=== PATIENT | female | born 1975 | race Hispanic/Latino ===

== ENCOUNTER → 2018-10-28 | Outpatient (CLI) | payer BC | END | disposition home or self-care (01) | LOC: RAH 13:35 | PROVIDERS: ATTEND Nurse Practitioner Family | DX: Z12.31 Encounter for screening mammogram for malignant neoplasm of breast (principal) | CPT/HCPCS: 77067 ==

== ENCOUNTER → 2023-02-05 | Outpatient (CLI) | payer BC | END | disposition home or self-care (01) | LOC: RAH 09:56 | PROVIDERS: ATTEND Obstetrics & Gynecology | DX: Z12.31 Encounter for screening mammogram for malignant neoplasm of breast (principal); N64.89 Other specified disorders of breast | CPT/HCPCS: 77067 ==

== ENCOUNTER → 2024-02-07 | Outpatient (CLI) | payer BC | END | disposition home or self-care (01) | LOC: RAH 08:57 | PROVIDERS: ATTEND Obstetrics & Gynecology | DX: Z12.31 Encounter for screening mammogram for malignant neoplasm of breast (principal); R92.333 Mammographic heterogeneous density, bilateral breasts | CPT/HCPCS: 77067 ==

== ENCOUNTER → 2024-08-14 | Outpatient (CLI) | payer BC ==
--- NOTE | 2024-08-14 23:33 | HMCIMG ---
US BREAST COMPLETE UNILATERAL REASON: Galactorrhea not associated with childbirth.. COMPARISON: Mammogram from February 07, 2024 TECHNIQUE: Right breast ultrasound study was performed. FINDINGS: Prominent complex defect is seen in the 3:00 measuring 3 mm. Hypoechoic nodule is seen at 9:30 o'clock measuring 2.5 x 1.1 x 2.1 cm stable and unchanged from previous ultrasound study of August 07, 2021 and September 01, 2021. Right axillary lymph node is seen measuring 2.1 x 1 x 2.0 cm. IMPRESSION: Prominent ducts at 3:00 measuring 3 mm. Right breast hypoechoic nodule unchanged. Clinical correlation and routine yearly mammogram is recommended. CATEGORY 2: BENIGN FINDINGS Recommend monthly self breast exam as well as annual clinical examination. Clinically and therefore, clinical examination is an essential part of breast evaluation.
== END | disposition home or self-care (01) ==
LOC: RAH 15:03
PROVIDERS: ATTEND Obstetrics & Gynecology
DX: N63.11 Unspecified lump in the right breast, upper outer quadrant (principal); N64.3 Galactorrhea not associated with childbirth
CPT/HCPCS: 76641

== ENCOUNTER → 2025-02-13 | Outpatient (CLI) | payer BC ==
--- NOTE | 2025-02-14 09:51 | HMCIMG ---
Exam Type: MAMMO DX BILATERAL, US BREAST LIMITED UNILATERAL Clinical Information: GALACTORRHEA NOT ASSOCIATED WITH CHILDBIRTH Comparison: None TECHNIQUE: Mammogram was performed with CC and MLO and ML projections. CAD was performed. CAD shows no worrisome regions. FINDINGS: The breasts are heterogeneously dense, which may obscure small masses.. Again, there is a right breast 10:00 position mass which has been biopsied in the past, marked with a biopsy site marker. The mass is also identified on ultrasound as an irregular inhomogeneous solid complex appearing lesion measuring approximately 2 cm at its greatest. The lesion is stable and from prior biopsy, the histology results were benign. Ultrasound shows no additional pathology. There is no nipple retraction or skin thickening. Benign-appearing calcifications are seen. IMPRESSION: 1. No mammographic or sonographic signs of malignancy.. 2. Routine follow-up recommended. BI-RADS: CATEGORY 2: BENIGN FINDINGS Note: A negative x-ray should not delay biopsy if a dominant or clinically suspicious mass is present, since 8-10% of cancers are not identified by mammography. Dense breasts, particularly, may obscure an underlying neoplasm.
== END | disposition home or self-care (01) ==
LOC: RAH 13:10
PROVIDERS: ATTEND Obstetrics & Gynecology
DX: N63.11 Unspecified lump in the right breast, upper outer quadrant (principal); N64.9 Disorder of breast, unspecified; R92.333 Mammographic heterogeneous density, bilateral breasts; R92.1 Mammographic calcification found on diagnostic imaging of breast; N64.3 Galactorrhea not associated with childbirth
CPT/HCPCS: 76642; 77066